=== PATIENT | male | born 1955 | race Caucasian/White ===

== ENCOUNTER 2016-07-03 08:21 | Emergency (ER) | payer OTHER ==
[~2016-07-03] VITALS: Ht 167.6 cm; Wt 60.0 kg
[2016-07-03 08:25] VITALS: BP 226/120; PULSE 101; RESP 14; TEMP 98; O2SAT 99
[2016-07-03 08:34] VITALS: BP 253/134
--- NOTE | 2016-07-03 09:30 | PD ---
HPI Chief Complaint: Abdominal Pain Time Seen by Provider: 09:24 Travel History International Travel<30 days: No Contact w/Intl Traveler<30days: No Traveled to known affect area: No History of Present Illness HPI 61-year-old man presents emergent from her right groin pain, he is a bulge there for quite some time is been larger in the past several weeks. Not really bothering him. Is wondering if it's a hernia and if he should doing about it. No other complaints. PFSH Past Medical History Medical History: Denies Significant Hx Past Surgical History Genitourinary Surgery: Yes (kidney stone) Social History Alcohol Use: Yes (daily) Tobacco Use: Yes Substance Use: No Allergies-Medications (Allergen,Severity, Reaction): Coded Allergies: No Known Allergies (Verified , 07/03/16) Reported Meds & Prescriptions Reported Meds & Active Scripts Active No Active Prescriptions or Reported Medications Review of Systems Gastrointestinal: No: Nausea, Vomiting, Abdominal Pain Physical Exam Narrative Gen.: Well-appearing 61-year-old man, no acute distress : Large right internal hernia, soft nontender easily reducible. Data Data Last Documented VS Vital Signs Date Time Temp Pulse Resp B/P Pulse Ox O2 Delivery O2 Flow Rate FiO2 07/03/16 08:38 18 07/03/16 08:34 253/134 07/03/16 08:25 98.0 101 99 Room Air MDM Medical Decision Making Medical Screen Exam Complete: Yes Emergency Medical Condition: Yes Differential Diagnosis Hernia, lymphadenopathy, other Narrative Course 59 male with reducible hernia, recommend outpatient surgery. Diagnosis Primary Impression: Right inguinal hernia Additional Instructions: Follow-up with the surgeon of your choice for further evaluation. Return to the emergency department for any worsening pain, if you're not able to reduce the hernia, or any other new or worsening symptoms. Med/Other Pt SpecificInfo: No Change to Meds Scripts No Active Prescriptions or Reported Meds Disposition: 01 DISCHARGE HOME Condition: Stable Russ Mayes MD Jul 03, 2016 09:30
== END 2016-07-03 10:10 | disposition home or self-care (01) ==
LOC: NEPE 08:21
DX: K40.90 Unilateral inguinal hernia, without obstruction or gangrene, not specified as recurrent (principal); F17.210 Nicotine dependence, cigarettes, uncomplicated
CPT/HCPCS: 99283